=== PATIENT | male | born 1985 | race Two or more races ===

== ENCOUNTER 2024-05-31 10:52 | Emergency (ER) | payer OTHER ==
[~2024-05-31] VITALS: Ht 190.5 cm; Wt 107.6 kg
--- NOTE | 2024-05-31 11:21 | ED.PDOC ---
History of Present Illness HPI Comments 39 year old male presents to the ED with a chief complaint of back pain onset 2 days. Mother states the patient fell and is currently experiencing low back pain. Patient states he hit his head with no LOC. Patient also noticed pain worsens with sitting. PMHx HTN, seizures, anxiety. No other symptoms or modif audrey factors present at this time. Chief Complaint: Back Pain Time Seen by MD: 11:05 Reviewed Notes: Medications, Allergies Home Meds Active Scripts Ibuprofen Micronized (MOTRIN TABLET) 600 Mg Tb, 600 MG PO TID PRN for 5 Days, #15 TAB *Black box warning-NSAIDS can increase risk of AK & hypertension, GI irritation, ulceration, bleed, perferation. Do not use post cardiac surgery. Use short duration/lowest effective dose. Prov:GRUPO ROLDAN MD 05/31/24 Information Source: Patient, Relative Mode of Arrival: Ambulatory Severity: Moderate Timing: Days Duration: Since onset Prehospital treatment: None Past Medical History PAST MEDICAL HISTORY: Anxiety, HTN, Seizures Surgical History: Denies all surgeries Family History Family History: Unknown Social History Smoker: Non-Smoker Alcohol: Denies ETOH Use Drugs: Denies Drug Use Lives In: Home Constitutional: denies: chills, diaphoresis, fatigue, fever, malaise, sweats, weakness, others EENTM: denies: blurred vision, double vision, ear bleeding, ear discharge, ear drainage, ear pain, ear ringing, eye pain, eye redness, hearing loss, mouth pain, mouth swelling, nasal discharge, nose bleeding, nose congestion, nose pain, photophobia, tearing, throat pain, throat swelling, voice changes, others Respiratory: denies: cough, hemoptysis, orthopnea, SOB at rest, shortness of breath, SOB with excertion, stridor, wheezing, others Cardiovascular: denies: chest pain, dizzy spells, diaphoresis, Dyspnea on exertion, edema, irregular heart beat, left arm pain, lightheadedness, palpitations, PND, syncope, others Gastrointestinal: denies: abdomen distended, abdominal pain, blood streaked bowels, constipated, diarrhea, dysphagia, difficulty swallowing, hematemesis, melena, nausea, poor appetite, poor fluid intake, rectal bleeding, rectal pain, vomiting, others Genitourinary: denies: burning, dysuria, flank pain, frequency, hematuria, incontinence, penile discharge, penile sore, pain, testicle pain, testicle swelling, urgency, others Neurological: denies: dizziness, fainting, headache, left sided numbness, left sided weakness, numbness, paresthesia, pre-existing deficit, right sided numbness, right sided weakness, seizure, speech problems, tingling, tremors, weakness, others Musculoskeletal: reports: back pain; denies: gout, joint pain, joint swelling, muscle pain, muscle stiffness, neck pain, others Integumetry: denies: bruises, change in color, change in hair/nails, dryness, laceration, lesions, lumps, rash, wounds, others Allergic/Immunocompromised: denies: Difficulty Healing, Frequent Infections, Hives, Itching, others Hematologic/Lymphatic: denies: anemia, blood clots, easy bleeding, easy bruising, swollen glands, others Endocrine: denies: excessive hunger, excessive sweating, excessive thirst, excessive urination, flushing, intolerance to cold, intolerance to heat, unexplained weight gain, unexplained weight loss, others Psychiatric: denies: anxiety, bipolar disorder, depression, hopeless, panic disorder, schizophrenia, sleepless, suicidal, others All Other Systems: Reviewed and Negative Physical Exam General Appearance: Mild Distress HEENT: Normal ENT Inspection, Pharynx Normal, TMs Normal Neck: Full Range of Motion, Non-Tender, Normal, Normal Inspection Respiratory: Chest Non-Tender, Lungs Clear, No Accessory Muscle Use, No Respiratory Distress, Normal Breath Sounds Cardiovascular: No Edema, No JVD, No Murmur, No Gallop, Normal Peripheral Pulses, Regular Rate/Rhythm Breast Exam: Deferred Gastrointestinal: No Organomegaly, Non Tender, No Pulsatile Mass, Normal Bowel Sounds, Soft Genitalia: Deferred Pelvic: Deferred Rectal: Deferred Extremities: No calf tenderness, Normal capillary refill, Normal inspection, Normal range of motion, Non-tender, No pedal edema Musculoskeletal : Apperance: Normal Neurologic: Alert, family physician II-XII nml as Tested, No Motor Deficits, Normal Affect, Normal Mood, No Sensory Deficits Cerebellar Function: Normal Reflexes: Normal Skin: Dry, Normal Color, Warm Peripheral Pulses: 3+ Radial (R), 3+ Radial (L) Lymphatic: No Adenopathy Was a procedure done? Was a procedure done?: No Differential Dx Considerations may include: Musculoskeletal pain Anxiety X-Ray, Labs, Meds, VS Vital Signs Date Time Temp Pulse Resp B/P (MAP) Pulse Ox O2 Delivery O2 Flow Rate FiO2 05/31/24 13:01 98.7 114 18 129/84 (99) 97 98.7 05/31/24 13:01 114 18 97 Room Air 05/31/24 11:04 98.7 114 18 129/84 (99) 97 Patient alert. Complaining of muscle pain. Vitals stable. Answering all questions. No sign of any trauma. Possibly he bumped his ribs against the wall. Poor historian pain Difficult to get full history. He lives in a facility. Clinical examination pristine. He does have chronic past medical history. Saturation pristine on room air. No leg swelling. No calf tenderness. Respiratory rate within normal limits. X-ray does show rib fracture. Was given prescription of Motrin. Explained to the mother. Was told to follow up with his primary care physician. Was told to come back if there is any problem. Time of 1ST Reevaluation: 11:35 Reevaluation 1ST: Improved Patient Education/Counseling: Diagnosis, Treatment, Prognosis Family Education/Counseling: Diagnosis, Treatment, Prognosis Additional Information I reviewed the following notes from patient's past medical encounters: The following tests were ordered, and results were reviewed by me: XY RIBS BILATERAL, XY SPINE THORACIC 2 VIEW Additional Information was gathered from interviewing the following independent historians: mother I reviewed and agreed with the following test results read by other providers: XY RIBS BILATERAL, XY SPINE THORACIC 2 VIEW I discussed treatment and results with medical personnel and patient and mother Departure 1 Departure Time of Disposition: 12:06 Impression: Primary Impression: Rib fractures Qualified Codes: S22.41XA - Multiple fractures of ribs, right side, initial encounter for closed fracture Additional Impression: Musculoskeletal pain Disposition: 01 HOME / SELF CARE / HOMELESS Condition: Good e-Prescriptions Ibuprofen Micronized (MOTRIN TABLET) 600 Mg Tb 600 MG PO TID PRN for 5 Days, #15 TAB *Black box warning-NSAIDS can increase risk of AK & hypertension, GI irritation, ulceration, bleed, perferation. Do not use post cardiac surgery. Use short duration/lowest effective dose. Prov: GRUPO ROLDAN MD 05/31/24 Discharged With: Self Critical Care Note Critical Care Time?: No Stability Stability form required: No Heart Score Heart Score: Heart Score Response (Comments) Value History N/A 0 EKG N/A 0 Age N/A 0 Risk Factors N/A 0 Troponin N/A 0 Total 0 I personally scribed for GRUPO ROLDAN MD ([email or web address]) on 05/31/24 at 11:21. Electronically submitted by Catarina Sweeney ([email or web address]). I personally scribed for GRUPO ROLDAN MD ([email or web address]) on 05/31/24 at 11:24. Electronically submitted by Catarina Sweeney ([email or web address]). GRUPO ROLDAN MD May 31, 2024 11:21
[2024-05-31 13:01] VITALS: BP 129/84; PULSE 114; RESP 18; TEMP 98.7; O2SAT 97
--- NOTE | 2024-05-31 13:13 | DVH ---
EXAM: XY SPINE THORACIC 2VIEW INDICATION: fall COMPARISON: None TECHNIQUE: 2 views of the thoracic spine were obtained. Findings: There is no evidence of an acute fracture, spondylolysis, or spondylolisthesis. The vertebral body heights and disc spaces are well-maintained. No blastic or lytic lesions are appreciated. No radiopaque foreign bodies. No superficial soft tissue abnormalities. Impression: 1. No acute osseous abnormality.
--- NOTE | 2024-05-31 13:15 | DVH ---
FRONTAL CHEST AND BILATERAL RIB RADIOGRAPHS HISTORY: fall TECHNIQUE: Multiple views of the bilateral ribs with frontal view of the chest. COMPARISON: None FINDINGS: The trachea is midline. The cardiac silhouette and mediastinum are within normal limits. No pneumothorax, pleural effusions, or consolidations. Bibasilar atelectasis. Nondisplaced fractures of the lateral aspects of right ribs 5-8 and posterior aspects of right ribs 7 -8. There is no evidence of dislocation, blastic, or lytic lesions. No radiopaque foreign bodies. No superficial soft tissue abnormalities. Impression: 1. Nondisplaced fractures of the lateral aspects of right ribs 5-8 and posterior aspects of right rib s 7-8. 2. No acute cardiopulmonary disease.
[2024-05-31] MEDS ORDERED: IBU600T PO (14:16)
== END 2024-05-31 14:14 | disposition home or self-care (01) ==
LOC: ER 10:52
DX: S22.41XA Multiple fractures of ribs, right side, initial encounter for closed fracture (principal); I10 Essential (primary) hypertension; Z79.1 Long term (current) use of non-steroidal anti-inflammatories (NSAID); X58.XXXA Exposure to other specified factors, initial encounter; Y93.89 Activity, other specified; Y92.89 Other specified places as the place of occurrence of the external cause; Y99.8 Other external cause status
CPT/HCPCS: 71111; 72070